=== PATIENT | male | born 1980 | race Caucasian/White ===

== ENCOUNTER 2025-01-14 23:52 | Emergency (ER) | payer MEDICARE, OTHER ==
[2025-01-15 00:36] VITALS: PULSE 83; RESP 17; TEMP 98.2
--- NOTE | 2025-01-15 00:36 | ED ---
General Adult HPI - General Stated complaint: left foot pain Time Seen by Provider: 01/15/25 00:35 Source: patient Mode of arrival: ambulatory Limitations: no limitations - History of Present Illness Initial comments: 44-year-old male presenting with chief complaint of left foot pain. He states that yesterday a horse stepped on it. Today he is having continued pain with weightbearing. He states that the pain is mainly on the bottom of his foot. No numbness or tingling. He still is full range of motion. - Related Data Allergies Allergy/AdvReac Type Severity Reaction Status Date / Time amoxicillin Allergy Swelling Verified 01/15/25 00:33 Penicillins Allergy Unknown Verified 01/15/25 00:32 acetaminophen [From Vicodin] AdvReac Unknown Verified 01/15/25 00:33 hydrocodone [From Vicodin] AdvReac Unknown Verified 01/15/25 00:33 Review of Systems ROS Statement: Those systems with pertinent positive or pertinent negative responses have been documented in the HPI. ROS Other: All systems not noted in ROS Statement are negative. General Exam - General Exam Comments Initial Comments: Visual Physical Exam Vital signs reviewed General: Well-appearing, nontoxic, no acute distress. Head: Normocephalic, atraumatic Eyes: PERRLA, EOMI ENT: Airway patent Chest: Nonlabored breathing Skin: No visual rash, normal skin tone Neuro: Alert and oriented 3 Musculoskeletal: No gross abnormalities Limitations: no limitations General appearance: alert, in no apparent distress Head exam: Present: atraumatic, normocephalic, normal inspection Eye exam: Present: normal appearance, EOMI Neck exam: Present: normal inspection. Absent: meningismus Respiratory exam: Absent: respiratory distress Cardiovascular Exam: Present: regular rate Left Foot/Toe exam: Present: full ROM, tenderness, swelling Neurovascular tendon exam: Present: no vascular compromise Neurological exam: Present: alert, oriented X3 Psychiatric exam: Present: normal affect, normal mood Skin exam: Present: warm, dry Course Vital Signs 01/15/25 01/15/25 00:33 02:49 Temperature 98.2 F Pulse Rate 83 83 Respiratory 17 17 Rate Blood Pressure 139/81 127/76 O2 Sat by Pulse 96 95 Oximetry Medical Decision Making - Medical Decision Making I performed the quick note portion of this visit, electronically signed Derek Carr PA-C Was pt. sent in by a medical professional or institution ([facility], [facility], urgent care, hospital, or fdc...) When possible be specific @ -No Did you speak to anyone other than the patient for history (EMS, parent, family, police, friend...)? What history was obtained from this source @ -No Did you review nursing and triage notes (agree or disagree)? Why? @ -I reviewed and agree with nursing and triage notes Were old charts reviewed (outside hosp., previous admission, EMS record, old EKG, old radiological studies, urgent care reports/EKG's, fdc records)? Report findings @ -No old charts were reviewed Differential Diagnosis (chest pain, altered mental status, abdominal pain women, abdominal pain men, vaginal bleeding, weakness, fever, dyspnea, syncope, headache, dizziness, GI bleed, back pain, seizure, CVA, palpatations, mental health, musculoskeletal)? @ -Differential Musculoskeletal Muscular strain, contusion, ligament sprain, fracture, arthritis, septic arthritis, bursitis, cellulitis, muscle spasm, nerve compression, DVT, arterial occlusion, herpes zoster, electrolyte abnormality, tumor.... This is not meant to be in all inclusive list EKG interpreted by me (3pts min.). @ -As above X-rays interpreted by me (1pt min.). @ -X-ray negative for fracture or dislocation CT interpreted by me (1pt min.). @ -None done U/S interpreted by me (1pt. min.). @ -None done What testing was considered but not performed or refused? (CT, X-rays, U/S, labs)? Why? @ -None What meds were considered but not given or refused? Why? @ -None Did you discuss the management of the patient with other professionals (professionals i.e. [facility], [facility], lab, RT, psych nurse, manager social services, delivery sales worker, teacher, credit officer, casey saw operator)? Give summary @ -No Was smoking cessation discussed for >3mins.? @ -No Was critical care preformed (if so, how long)? @ -No Were there social determinants of health that impacted care today? How? (Homelessness, low income, unemployed, alcoholism, drug addiction, transportation, low edu. Level, literacy, decrease access to med. care, residential, rehab)? @ -No Was there de-escalation of care discussed even if they declined (Discuss DNR or withdrawal of care, Hospice)? DNR status @ -No What co-morbidities impacted this encounter? (DM, HTN, Smoking, COPD, CAD, Cancer, CVA, ARF, Chemo, Hep., AIDS, mental health diagnosis, sleep apnea, morbid obesity)? @ -None Was patient admitted / discharged? Hospital course, mention meds given and route, prescriptions, significant lab abnormalities, going to OR and other pertinent info. @ -44-year-old male presenting chief complaint of left foot injury. States that yesterday a horse stepped on his foot. X-ray negative for fracture or dislocation. Patient educated on today's findings and supportive management at home. Follow-up with PCP. Report back to ER with any new or worsening symptoms. Discussed return parameters and answered all questions. Patient conveyed verbal understanding and agreed to the plan. I discussed this case in detail with my attending Dr. gibson Undiagnosed new problem with uncertain prognosis? @ -No Drug Therapy requiring intensive monitoring for toxicity (Heparin, Nitro, Insulin, Cardizem)? @ -No Were any procedures done? @ -No Diagnosis/symptom? @ -Foot sprain Acute, or Chronic, or Acute on Chronic? @ -Acute Uncomplicated (without systemic symptoms) or Complicated (systemic symptoms)? @ -Uncomplicated Side effects of treatment? @ -No Exacerbation, Progression, or Severe Exacerbation? @ -No Poses a threat to life or bodily function? How? (Chest pain, [place], [place], pneumonia, PE, COPD, DKA, ARF, appy, cholecystitis, CVA, Diverticulitis, Homicidal, Suicidal, threat to staff... and all critical care pts) @ -Unlikely Disposition Clinical Impression: Foot sprain Disposition: HOME SELF-CARE Condition: Good Instructions (If sedation given, give patient instructions): Foot Sprain (ED) Additional Instructions: Follow-up with PCP. Report back to ER with any new or worsening symptoms. Take Motrin and Tylenol as needed for pain control. Rest, ice, compress, elevate the foot. Is patient prescribed a controlled substance at d/c from ED?: No Referrals: Tricia Carr DO [Primary Care Provider] - 1-2 days Time of Disposition: 02:37
--- NOTE | 2025-01-15 02:31 | XR ---
EXAM: XR Left Foot Complete, 3 Views CLINICAL HISTORY: Pt presents with left foot pain. Pt was stepped on by a horse yesterday and there is increased pain and difficulty walking. Horse stepped on foot TECHNIQUE: Frontal, lateral and oblique views of the left foot. COMPARISON: No relevant prior studies available. FINDINGS: Bones/joints: Os trigonum. Small posterior and plantar calcaneal spur. No fracture or dislocation. Mild osteoarthritic changes. 1 x 7 mm loose body in medial aspect of interphalangeal joint of the great toe. Soft tissues: Unremarkable. No radiopaque foreign body. IMPRESSION: No fracture or dislocation.
[2025-01-15] MEDS: IBUPROFEN 600 MG TAB PO STA (02:46)
[2025-01-15 02:51] VITALS: BP 127/76
== END 2025-01-15 02:50 | disposition home or self-care (01) ==
LOC: EC 23:52
DX: S93.602A Unspecified sprain of left foot, initial encounter (principal); Z88.0 Allergy status to penicillin; Z88.6 Allergy status to analgesic agent; W55.12XA Struck by horse, initial encounter
CPT/HCPCS: 99283